=== PATIENT | female | born 1990 | race Caucasian/White ===

== ENCOUNTER 2017-12-21 09:17 | Emergency (ER) | payer BC, MEDICAID ==
[~2017-12-21] VITALS: Ht 170.2 cm; Wt 88.5 kg
[~2017-12-21 09:17] MED LIST: FOLIC ACID; [UNRECOGNIZED DRUG - REMARK]
--- NOTE | 2017-12-21 09:35 | NUR ---
Dr Hays at the bedside for eval and exam.
--- NOTE | 2017-12-21 10:08 | NUR ---
Female account development associate accompanied female patient for (u/s tech).
[2017-12-21 10:11] LABS: BASOPHILS # (AUTO) 0.1 K/uL (0.0-8.0); BASOPHILS % (AUTO) 0.5 % (0.0-2.0); EOSINOPHILS # (AUTO) 0.2 K/uL (0.0-0.7); EOSINOPHILS % (AUTO) 1.5 % (0.0-7.0); HEMATOCRIT 41.5 % (31.2-41.9); HEMOGLOBIN 13.9 g/dL (10.9-14.3); LYMPHOCYTES # (AUTO) 3.1 K/uL (20.0-40.0); LYMPHOCYTES % (AUTO) 28.1 % (20.5-51.5); MEAN CORPUSCULAR HEMOGLOBIN 30.1 uug (24.7-32.8); MEAN CORPUSCULAR HGB CONC 33 g/dL (32.3-35.6); MEAN CORPUSCULAR VOLUME 90.1 fL (75.5-95.3); MONOCYTES # (AUTO) 0.7 K/uL (2.0-10.0); MONOCYTES % (AUTO) 6.6 % (0.0-11.0); NEUTROPHILS # (AUTO) 6.9 K/uL (1.8-8.9); NEUTROPHILS % (AUTO) 63.3 % (38.5-71.5); PLATELET COUNT (AUTO) 270 K/uL (179-408); WHITE BLOOD COUNT (AUTO) 10.9 K/uL (3.8-11.8)
[2017-12-21 10:57] VITALS: BP 140/76
--- NOTE | 2017-12-21 10:58 | NUR ---
Patient discharged to home in stable conditon. Written and verbal after care instructions given. Patient verbalizes understanding of instructions.
== END 2017-12-21 10:59 | disposition home or self-care (01) ==
LOC: ER 09:18
DX: O20.0 Threatened abortion (principal); I10 Essential (primary) hypertension; J18.9 Pneumonia, unspecified organism; Z3A.08 8 weeks gestation of pregnancy
CPT/HCPCS: 36415; 76856; 85025; 86850; 86900; 86901; A4663

== ENCOUNTER 2017-12-23 17:05 | Emergency (ER) | payer BC ==
[~2017-12-23] VITALS: Ht 170.2 cm; Wt 88.5 kg
[2017-12-23] MEDS ORDERED: HYDROMORPHONE 1 MG/1 ML DISP.SYRIN IM ONE (17:15)
[2017-12-23] MEDS ORDERED: PROMETHAZINE HCL 25 MG/1 ML VIAL IM ONE (17:15)
--- NOTE | 2017-12-23 17:25 | NUR ---
Pt seen,examined by .
--- NOTE | 2017-12-23 18:26 | NUR ---
Pelvic U/S was done.
--- NOTE | 2017-12-23 18:37 | NUR ---
Discharge instruction given to pt.Verbalized understanding.
[2017-12-23 18:39] VITALS: BP 138/86
== END 2017-12-23 18:40 | disposition home or self-care (01) ==
LOC: ER 17:08
DX: O20.9 Hemorrhage in early pregnancy, unspecified (principal); I10 Essential (primary) hypertension; Z3A.01 Less than 8 weeks gestation of pregnancy
CPT/HCPCS: 36415; 76856; A4663